=== PATIENT | male | born 1985 | race American Indian/Alaskan Native ===

== ENCOUNTER 2020-06-11 12:54 | Emergency (ER) | payer MEDICAID ==
[2020-06-11 13:33] VITALS: BP 127/72
== END 2020-06-11 19:30 | disposition left against medical advice (07) ==
LOC: ED 12:54
DX: R07.81 Pleurodynia (principal); Z53.21 Procedure and treatment not carried out due to patient leaving prior to being seen by health care provider

== ENCOUNTER 2021-04-24 19:26 | Emergency (ER) | payer MEDICAID ==
[2021-04-24 20:34] VITALS: BP 141/100
[2021-04-24 21:13] LABS: Hematocrit 53.1 % (35.5-45.6); Hemoglobin 18.3 gm/dl (11.8-15.2); Mean Corpuscular HGB Conc 34 % (32-34); Mean Corpuscular Volume 86 fl (84-94); Platelet Count 323 K/mm3 (140-440); Red Blood Count 6.16 M/mm3 (3.65-5.03); Red Cell Distribution Width 13.6 % (13.2-15.2)
[2021-04-24 21:37] LABS: Alanine Aminotransferase 10 units/L (7-56); Albumin 5.6 g/dL (3.9-5); BUN/Creatinine Ratio 17; Blood Urea Nitrogen 19 mg/dL (9-20); Calcium 10.4 mg/dL (8.4-10.2); Hemolysis Index 16
[2021-04-24 21:54] LABS: Bacteria,Urine 1+ /HPF (Negative); Bilirubin,Urine NEG (Negative); Blood,Urine NEG (Negative); Color,Urine Yellow (Yellow); Hyaline Casts,Urine 1 /LPF; Mucus,Urine 1+ /HPF
[2021-04-24 22:36] LABS: RBC Morphology Normal; Total Cells Counted 100
--- NOTE | 2021-04-24 23:39 | XRay Report ---
CHEST 2 VIEWS 2250 INDICATION / CLINICAL INFORMATION: right upper chest pain COMPARISON: None available. FINDINGS: SUPPORT DEVICES: None. HEART / MEDIASTINUM: No significant abnormality. LUNGS / PLEURA: No significant pulmonary or pleural abnormality. No pneumothorax. ADDITIONAL FINDINGS: No significant additional findings. IMPRESSION: No significant acute abnormality Signer Name: Kee Montes MD Signed: 04/24/2021 11:35 PM Workstation Name: [id number]
--- NOTE | 2021-04-25 01:03 | Emergency Department Report ---
ED General Adult HPI - General Chief complaint: Abdominal Pain Stated complaint: SOB,LEFT SIDE PAIN PUI?: No Time Seen by Provider: 04/24/21 22:39 Source: patient Mode of arrival: Ambulatory Limitations: No Limitations - History of Present Illness Initial comments: 35-year-old male presents emerged department complaining of a few day history of left upper quadrant pain that sometimes takes his breath away and is sharp to crampy fashion lasting for several minutes of. Sometimes experience some nausea and stool type changes but reports no hemoptysis no hematemesis hematochezia. Reports no fever, chills, sweats. Reports no trauma reports no dysuria no hematuria Quality: aching, constant Consistency: constant Improves with: none Worsens with: none Associated Symptoms: denies: confusion, headaches, loss of appetite, malaise, shortness of breath, syncope, weakness - Related Data Previous Rx's Medication Instructions Recorded Last Taken Type Ketorolac [Toradol] 10 mg PO Q6H PRN #10 tablet 04/24/21 Unknown Rx Allergies Allergy/AdvReac Type Severity Reaction Status Date / Time No Known Allergies Allergy Unverified 06/11/20 13:30 ED Review of Systems ROS: Stated complaint: SOB,LEFT SIDE PAIN Other details as noted in HPI Comment: All other systems reviewed and negative ED Past Medical Hx - Past Medical History Previous Medical History?: Yes Hx Asthma: Yes - Medications Home Medications: Home Medications Medication Instructions Recorded Confirmed Last Taken Type Ketorolac [Toradol] 10 mg PO Q6H PRN #10 tablet 04/24/21 Unknown Rx ED Physical Exam - General Limitations: No Limitations General appearance: alert, in no apparent distress - Head Head exam: Present: atraumatic, normocephalic - Eye Eye exam: Present: normal appearance, PERRL, EOMI Pupils: Present: normal accommodation - ENT ENT exam: Present: normal exam, mucous membranes moist - Neck Neck exam: Present: normal inspection - Respiratory Respiratory exam: Present: normal lung sounds bilaterally. Absent: respiratory distress - Cardiovascular Cardiovascular Exam: Present: regular rate, normal rhythm. Absent: systolic murmur, diastolic murmur, rubs, gallop - GI/Abdominal GI/Abdominal exam: Present: soft, tenderness (To the left flank region with palpation and vague CVA tenderness. No masses appreciated. No Rovsing, no Ley Dinh, no tenderness at McBurney's, no Watt sign. No [place] sign no rash), normal bowel sounds. Absent: rebound, organomegaly, mass, bruit - Rectal Rectal exam: Present: deferred - Extremities Exam Extremities exam: Present: normal inspection - Back Exam Back exam: Present: normal inspection - Neurological Exam Neurological exam: Present: alert, oriented X3 - Psychiatric Psychiatric exam: Present: normal affect, normal mood - Skin Skin exam: Present: warm, dry, intact, normal color. Absent: rash ED Course Vital Signs 04/24/21 04/25/21 20:31 00:31 Temperature 98.5 F Pulse Rate 98 H 92 H Respiratory 18 17 Rate Blood Pressure 141/100 O2 Sat by Pulse 96 99 Oximetry ED Medical Decision Making - Lab Data Result diagrams: 04/24/21 20:56 04/24/21 20:56 - Radiology Data Radiology results: report reviewed [address] [address] XRay Report Signed Patient: LYN RUSHING MR#: [id number] : 1985 Acct:[id number] Age/Sex: 35 / M ADM Date: 04/24/21 Loc: ED Attending Dr: Ordering Physician: BLANCA LEACH NP Date of Service: 04/24/21 Procedure(s): XR chest routine 2V Accession Number(s): [id number] cc: BLANCA LEACH NP Fluoro Time In Minutes: CHEST 2 VIEWS 2250 INDICATION / CLINICAL INFORMATION: right upper chest pain COMPARISON: None available. FINDINGS: SUPPORT DEVICES: None. HEART / MEDIASTINUM: No significant abnormality. LUNGS / PLEURA: No significant pulmonary or pleural abnormality. No pneumothorax. ADDITIONAL FINDINGS: No significant additional findings. IMPRESSION: No significant acute abnormality Signer Name: Kee Montes MD Signed: 04/24/2021 11:35 PM Workstation Name: [id number] Transcribed By: GJ Dictated By: Kee Montes MD Electronically Authenticated By: Kee Montes MD Signed Date/Time: 04/24/212334 DD/ 34 TD/TT: Print Cancel - Medical Decision Making This patient presents with abdominal pain of unclear etiology. Their evaluation has not identified a emergent etiology for the abdominal pain. Specifically, giv en the very benign exam, normal laboratory studies, and lack of significant risk factors, I have a very low suspicion for appendicitis, ischemic bowel, bowel perforation, or any other life threatening disease. I have discussed with the patient the level of uncertainty with undifferentiated abdominal pain and clearly explained the need to follow-up as noted on the discharge instructions, or return to the Emergency Department immediately if the pain worsens, develops fever, persistent and uncontrollable vomiting, or for any new symptoms or concerns. I discussed with the patient that this presentation today for abdominal pain could represent a significant risk for an acute abdominal process. Although the tests in the ED were essentially normal, there is still a possibility of a process such as appendicitis, diverticulitis, cholecystitis, ulcer, early bowel obstruction, mesenteric ischemia, kidney stone, or even kidney infection which could subsequently cause disability or . The patient understands that they must return within 24 hours for a recheck or see their physician within 24 hours for re-exam due to the possibility of significant surgical or medical process. Critical care attestation.: If time is entered above; I have spent that time in minutes in the direct care of this critically ill patient, excluding procedure time. ED Disposition Clinical Impression: Left flank pain Disposition: DC-01 TO HOME OR SELFCARE Is pt being admited?: No Does the pt Need Aspirin: No Condition: Stable Instructions: Abdominal Pain, Adult, [id number], Flank Pain, Adult Prescriptions: Ketorolac [Toradol] 10 mg PO Q6H PRN #10 tablet PRN Reason: Pain Referrals: [facility] [Provider Group] - 3-5 Days
== END 2021-04-25 00:31 | disposition home or self-care (01) ==
LOC: ED 19:26
DX: R10.32 Left lower quadrant pain (principal); R11.0 Nausea; J45.909 Unspecified asthma, uncomplicated; Z79.899 Other long term (current) drug therapy
CPT/HCPCS: 36415; 71046; 80053; 81001; 83690; 85007; 85025